=== PATIENT | male | born 1995 | race Native Hawaiian/Other Pacific Islander ===

== ENCOUNTER 2016-06-27 16:06 | Emergency (ER) | payer OTHER ==
[~2016-06-27] VITALS: Ht 175.3 cm; Wt 81.6 kg
[2016-06-27 16:21] LABS: PLATELET COUNT 317 K/uL (142-355)
[2016-06-27 16:53] LABS: POTASSIUM 3.7 mmol/L (3.6-5.2); SODIUM 138 mmol/L (136-145)
[2016-06-27 18:49] VITALS: BP 145/81; TEMP 98.1
== END 2016-06-27 19:40 | disposition other institution (70) ==
LOC: ED 16:06
DX: F19.10 Other psychoactive substance abuse, uncomplicated (principal); F22 Delusional disorders
CPT/HCPCS: 80053; 80307; 80320; 80329; 81000; 85027; 99285; G0479

== ENCOUNTER 2016-09-18 08:41 | Emergency (ER) | payer OTHER ==
[~2016-09-18] VITALS: Ht 172.7 cm; Wt 88.5 kg
[2016-09-18 08:35] VITALS: BP 154/96; TEMP 98.2
[2016-09-18] MEDS ORDERED: ZIPR20CA PO (08:56)
[2016-09-18 09:27] LABS: PLATELET COUNT 335 K/uL (142-355)
[2016-09-18 09:37] LABS: POTASSIUM 4.1 mmol/L (3.6-5.2); SODIUM 135 mmol/L (136-145)
== END 2016-09-18 15:15 | disposition other institution (70) ==
LOC: ED 08:41
PROVIDERS: Specialist
DX: R44.0 Auditory hallucinations (principal); R44.1 Visual hallucinations; F20.9 Schizophrenia, unspecified
CPT/HCPCS: 80053; 80307; 81000; 82550; 82553; 83735; 84100; 85027; 85651; 93005; 96365; 96375; 99285; G0479; J2060; J3411; J3490

== ENCOUNTER 2019-01-09 18:20 | Emergency (ER) | payer OTHER ==
[~2019-01-09] VITALS: Ht 172.7 cm; Wt 68.0 kg
[~2019-01-09 18:20] MED LIST: ZIPR20CA PO
[2019-01-09 19:20] VITALS: BP 134/74; TEMP 98
== END 2019-01-09 19:20 | disposition home or self-care (01) ==
LOC: ED 18:20
PROC: 0HQFXZZ Repair Right Hand Skin, External Approach (ICD-10-PCS; principal; 2019-01-09)
DX: S61.212A Laceration without foreign body of right middle finger without damage to nail, initial encounter (principal); S61.214A Laceration without foreign body of right ring finger without damage to nail, initial encounter; W26.9XXA Contact with unspecified sharp object(s), initial encounter
CPT/HCPCS: 90471; 90715; 99283; J2001

== ENCOUNTER 2019-02-20 14:19 | Emergency (ER) | payer OTHER | END 2019-02-20 15:43 | disposition home or self-care (01) | LOC: ED 14:19 | DX: T63.451A Toxic effect of venom of hornets, accidental (unintentional), initial encounter (principal) | CPT/HCPCS: 99281 ==

== ENCOUNTER 2021-06-09 04:50 | Emergency (ER) | payer OTHER ==
[~2021-06-09] VITALS: Ht 175.3 cm; Wt 81.6 kg
[2021-06-09 05:09] LABS: PLATELET COUNT 291 K/uL (142-355)
[2021-06-09 05:18] LABS: POTASSIUM 3.1 mmol/L (3.6-5.2)
[2021-06-09 05:29] LABS: PARTIAL THROMBOPLASTIN TIME 22.9 SECONDS (24.5-33.6)
[2021-06-09 06:00] VITALS: BP 128/87; TEMP 98.1
== END 2021-06-09 06:10 | disposition short-term general hospital (02) ==
LOC: ED 04:50
PROVIDERS: Hospitalist
DX: S42.92XA Fracture of left shoulder girdle, part unspecified, initial encounter for closed fracture (principal); X93.XXXA Assault by handgun discharge, initial encounter; Y92.89 Other specified places as the place of occurrence of the external cause; Z11.52 Encounter for screening for COVID-19
CPT/HCPCS: 36415; 80053; 80320; 85027; 85610; 85730; 87635; 96365; 96366; 96375; 99284; J0690; J2270; J2405; U0003